=== PATIENT | male | born 1980 | race Caucasian/White ===

== ENCOUNTER 2024-06-20 12:27 | Emergency (ER) | payer BC ==
[~2024-06-20] VITALS: Ht 188 cm; Wt 141.0 kg
[2024-06-20] VITALS (22 sets, daily range): BP systolic 73–122; BP diastolic 47–80
[~2024-06-20 12:27] MED LIST: ALLEGRA ALLERGY60 MG PO; ALLEGRA-D24 HOUR; AMOXICILLIN/CL875 MG OR; AMOXICILLIN/CL875 MG PO; AMOXICILLIN500 MG PO; AUGMENTIN875TAB PO; BACTRIM DS1 TAB PO; BENZONATATE200 MG PO; CARVEDILOL25 MG PO; CITALOPRAM40 MG PO; DIP/TET TOXOID0.5 ML IM; FLEXERIL OR; FLONASE NASAL50 MCG; FLUZONE SPLT1 M1 IM; HYDROCHLOROT12.5 MG PO; HYDROCHLOROT25 MG PO; IBUPROFEN800 MG PO; LISINOPRIL10 MG PO; LISINOPRIL5 MG PO; LOSARTAN POT25 MG PO; LOSARTAN POT50 MG PO; LOSARTAN POTAS100 MG PO; MEDDOSEPAK PO; METOPROL TAR25 MG PO; MONTELUKAST SOD10 MG PO; MOUNJARO5 MG; MUCINEX600 MG PO; MULTIVITAMIN PO; NASOCORT; OMEPRAZOLE40 MG PO; PRILOSEC40 MG PO; PROAIR HFA IN; SILVADENE1 % EX; TADALAFIL2.5 MG PO; TESSALON200 MG PO; VALACYCLOVIR HCL1 GM PO; XYZAL5 MG PO; ZANAFLEX4 MG OR; [UNRECOGNIZED DRUG - OTHER]; [UNRECOGNIZED DRUG - OTHER] OR; [UNRECOGNIZED DRUG - OTHER] PO
[2024-06-20 12:48] LABS: BASO% 0.2 % (0-3); EOS% 1.6 % (0-8); HEMATOCRIT 51.1 % (39.0-50.0); HEMOGLOBIN 15.9 g/dl (14.0-18.0); IMMATURE GRANULOCYTES 0.1 % (0.0-5.0); LYMPH% 16.6 % (15-41); MEAN CORPUSCULAR HGB 24.1 pG CALC (26.0-32.0); MEAN CORPUSCULAR HGB CONC 31.1 g/dL CAL (32.0-36.0); MONO% 11.1 % (2-13); NEUT# 7.28 thou/uL (1.82-7.42); NEUT% 70.4 % (42-76); RED BLOOD COUNT 6.6 mill/uL (4.70-6.10); RED CELL DISTRI WIDTH 17.5 % (11.5-15.5)
[2024-06-20 12:51] LABS: MEAN CELL VOLUME 77.4 fL CALC (80.0-100.0)
[2024-06-20] MEDS ORDERED: SODIUM CHLORIDE 0.9% 1,000 ML IV ONE ×2 (13:00)
[2024-06-20 13:01] LABS: ALBUMIN 4.3 g/dL (3.2-5.0); ALKALINE PHOSPHATASE 48 u/l (38-126); ANION GAP 13 (6-22 (CALC)); BILIRUBIN, TOTAL 1.1 mg/dL (0.2-1.3); BUN 25 mg/dL (9-20); BUN/CREATININE RATIO 19 (12-20 (CALC)); CARBON DIOXIDE 23 mmol/l (22-30); CHLORIDE 104 mmol/l (95-108); CREATININE 1.3 mg/dL (0.7-1.3); ESTIMATED GFR 69 ML/MIN (>=90 (CALC)); POTASSIUM 3.7 mmol/l (3.5-5.1); SGOT/AST 30 u/l (17-59); SODIUM 136 mmol/l (137-146); TOTAL PROTEIN 7.4 g/dL (6.3-8.2)
[2024-06-20] MEDS ORDERED: Diph, Acellular Pertussis, Tet 0.5 ML/VIAL (Tdap) SDV IM ONE (15:00)
[2024-06-20 15:20] LABS: URINE BLOOD DIPSTICK Negative (NEGATIVE); URINE GLUCOSE - DIPSTICK Negative (NEGATIVE); URINE KETONE Negative (NEGATIVE); URINE LEUK ESTERASE Negative (NEGATIVE); URINE NITRITE - DIPSTICK Negative (Negative); URINE PROTEIN - DIPSTICK >=300 mg/dL (NEG-TRACE); URINE UROBILINOGEN - DIPSTICK 0.2 E.U./dL (0.2)
[2024-06-20 15:23] LABS: URINE COLOR Dark yellow
[2024-06-20 15:29] LABS: URINE BACTERIA RARE hpf; URINE RBC 0-2 RBC/hpf (0-5); URINE SQUAMOUS EPITHELIAL CELL FEW EPI/hpf (0-FEW); URINE WBC 0-2 WBC/hpf (0-5)
[2024-06-20 15:30] LABS: URINE HYALINE CAST FEW lpf (NONE-RARE)
[2024-06-20] MEDS ORDERED: AZITHROMYCIN 500 MG in SODIUM CHLORIDE 0.9% 500 ML IV ONE (15:55)
[2024-06-20] MEDS ORDERED: AZITHROMYCIN 250 MG/TAB PO ONE (15:55)
[2024-06-20] MEDS ORDERED: AZITHROMYCIN500 MG PO (16:12)
== END 2024-06-20 16:37 | disposition home or self-care (01) | DRG 312 ==
LOC: ED 12:27
PROVIDERS: Nurse Practitioner
DX: R55 Syncope and collapse (principal); E86.0 Dehydration; R19.7 Diarrhea, unspecified; S01.01XA Laceration without foreign body of scalp, initial encounter; I10 Essential (primary) hypertension; E29.1 Testicular hypofunction; W18.39XA Other fall on same level, initial encounter; Z79.890 Hormone replacement therapy
CPT/HCPCS: 90715; Q9967